=== PATIENT | female | born 1970 | race Hispanic/Latino ===

== ENCOUNTER 2018-01-22 09:09 | Outpatient (CLI) | payer BC ==
--- NOTE | 2018-01-22 09:51 | Mammography Report ---
BILATERAL MAMMOGRAM: FINDINGS: There are scattered fibroglandular densities (approximately 25%-50% glandular). No mass, distortion, suspicious calcification, or skin change is seen. No interval change compared to December 2013. CAD was utilized. IMPRESSION: Negative mammogram. There is no mammographic evidence of malignancy. RECOMMENDATION: Follow-up per ACS guidelines. BI-RADS CATEGORY: 1 = Negative ACR BI-RADS MAMMOGRAPHIC CODES: 0 = Needs additional imaging evaluation; 1 = Negative; 2 = Benign; 3 = Probably benign; 4 = Suspicious; 5 = Malignant; 6 = Known biopsy-proven malignancy COMMENT: 1. Dense breast tissue, i.e., adenosis, fibrocystic changes, etc., may obscure an underlying neoplasm. 2. Approximately 10% of cancers are not detected with mammography. 3. A negative mammography report should not delay biopsy if a clinically suspicious mass is present. COMMENT: Patient follow-up letters are generated in [facility].
== END 2018-01-22 09:10 | disposition home or self-care (01) ==
LOC: MAMMO 09:09
PROVIDERS: ATTEND Obstetrics & Gynecology Gynecology
DX: Z12.31 Encounter for screening mammogram for malignant neoplasm of breast (principal)
CPT/HCPCS: 77067

== ENCOUNTER 2019-07-17 22:17 | Emergency (ER) | payer BC ==
[2019-07-17] MEDS ORDERED: ASPIRIN 81 MG TAB CHEW PO ONE (22:20)
[2019-07-17] MEDS ORDERED: IPRATROPIUM 0.02% NEBU 2.5 ML IH ONE (22:22)
[2019-07-17] MEDS ORDERED: ALBUTEROL 2.5 MG/3 ML NEBU IH ONE (22:22)
[2019-07-17] MEDS ORDERED: methylPREDNISolone Sod Succinate 125 MG/2 ML INJ IV ONE (22:22)
--- NOTE | 2019-07-17 22:24 | Event Note ---
ED Screening Note Date of service: 07/17/19 Time: 22:23 ED Screening Note: Pt complains of sudden onset of chest pain and tightness x 45 minutes +wheezing and rhonchi on exam-denies hx of asth,a or COPD +smoker This initial assessment/diagnostic orders/clinical plan/treatment(s) is/are subject to change based on patients health status, clinical progression and re- assessment by fellow clinical providers in the ED. Further treatment and workup at subsequent clinical providers discretion. Patient/guardian urged not to elope from the ED as their condition may be serious if not clinically assessed and managed. Initial orders include: labs CXR cont neb
== END 2019-07-17 23:41 ==
LOC: ED 22:17
DX: J10.1 Influenza due to other identified influenza virus with other respiratory manifestations (principal); Z53.21 Procedure and treatment not carried out due to patient leaving prior to being seen by health care provider